=== PATIENT | female | born 1950 | race Caucasian/White ===

== ENCOUNTER → 2018-01-11 | Outpatient (CLI) | payer MEDICARE, OTHER ==
[~2018-01-11] MED LIST: LIPITOR10 MG PO; NORVASC2.5 MG PO
== END | disposition home or self-care (01) ==
LOC: CDC 12:58
DX: Z01.810 Encounter for preprocedural cardiovascular examination (principal); K80.20 Calculus of gallbladder without cholecystitis without obstruction; I45.10 Unspecified right bundle-branch block
CPT/HCPCS: 93000

== ENCOUNTER 2018-01-18 06:18 | Day surgery (SDC) | payer OTHER ==
[~2018-01-18] VITALS: Ht 158.8 cm; Wt 62.6 kg
[2018-01-18 06:51] VITALS: BP 140/76
[2018-01-18] MEDS ORDERED: COLACE100 MG PO (10:10)
[2018-01-18] MEDS ORDERED: PERCOCET 5/31 TABLET PO (10:10)
[2018-01-18 12:15] VITALS: BP 138/73
[2018-01-18 13:10] VITALS: BP 135/80
[2018-01-18 14:29] VITALS: BP 133/72
== END 2018-01-18 14:53 | disposition home or self-care (01) ==
LOC: SDC
PROC: 0FT44ZZ Resection of Gallbladder, Percutaneous Endoscopic Approach (ICD-10-PCS; principal; 2018-01-18)
DX: K80.10 Calculus of gallbladder with chronic cholecystitis without obstruction (principal); I10 Essential (primary) hypertension; E78.5 Hyperlipidemia, unspecified; K21.9 Gastro-esophageal reflux disease without esophagitis; K44.9 Diaphragmatic hernia without obstruction or gangrene; K29.50 Unspecified chronic gastritis without bleeding; Z85.828 Personal history of other malignant neoplasm of skin
CPT/HCPCS: 88304; J1100; J1170; J1885; J2001; J2250; J2405; J2710; J2765; J3010; J3475; J7120; S0074

== ENCOUNTER 2018-01-24 10:57 | Inpatient (IN) | payer OTHER ==
[~2018-01-24] VITALS: Ht 157.5 cm; Wt 62.3 kg
[~2018-01-24 10:57] MED LIST changes: +COLACE100 MG PO; +PERCOCET 5/31 TABLET PO
[2018-01-24 11:58] LABS: HEMATOCRIT 42.6 % (36.0-46.0); HEMOGLOBIN 14.7 G/DL (11.9-15.5); MCH 28.9 PG (29.0-34.0); MCHC 34.5 G/DL (30.0-36.0); MCV 83.7 FL (83-99); PLATELET COUNT 238 K/uL (156-360); RBC DIS.WIDTH-CV 12.6 % (11.8-14.6); RBC DIS.WIDTH-SD 38.5 % (39-53); RED BLOOD COUNT 5.09 M/uL (3.80-5.20); WHITE BLOOD COUNT 11.6 K/uL (4.1-10.2)
[2018-01-24 12:07] LABS: ALBUMIN 4.5 g/dL (3.2-4.8)
[2018-01-24 12:08] LABS: CHLORIDE 101 mEq/L (99-109); POTASSIUM 4.6 mEq/L (3.7-5.4); SODIUM 137 mEq/L (136-147)
[2018-01-24 12:10] LABS: GLUCOSE 150 mg/dL (70-99); TOTAL PROTEIN 8.1 g/dL (6.4-8.3)
[2018-01-24 12:12] LABS: TOTAL BILIRUBIN 6.3 mg/dL (0.0-1.0)
[2018-01-24 12:13] LABS: ALKALINE PHOSPHATASE 178 IU/L (3-129)
[2018-01-24 12:14] LABS: CREATININE 0.8 mg/dL (0.6-1.3); GFR ESTIMATE (CALCULATED) > 59 mL/min/
[2018-01-24 12:15] LABS: AST (GOT) 654 IU/L (2-34); UREA NITROGEN (BUN) 12 mg/dL (9-23)
[2018-01-24 12:16] LABS: ALT (GPT) 839 IU/L (3-49)
[2018-01-24 12:29] LABS: LIPASE 3751 U/L (1.0-51.0)
[2018-01-24 12:54] LABS: APPEARANCE CLEAR ((CLEAR)); BILIRUBIN NEGATIVE; BLOOD SMALL; COLOR YELLOW ((YELLOW)); GLUCOSE (STRIP) NEGATIVE; KETONES NEGATIVE; LEUKOCYTES TRACE; NITRITE NEGATIVE; PROTEIN (STRIP) NEGATIVE; SPECIFIC GRAVITY 1.006 (1.000-1.030)
[2018-01-24 13:01] LABS: BACTERIA RARE /HPF; CALCIUM OXALATE CRYSTALS 2+ /HPF; EPITHELIAL CELLS RARE /HPF; MUCUS TRACE /LPF; RED BLOOD CELLS 0-5 /HPF (0-5)
[2018-01-24] MEDS ORDERED: COLACE100 MG PO (13:42)
[2018-01-24] MEDS ORDERED: LIPITOR10 MG PO (13:42)
[2018-01-24] MEDS ORDERED: ONE DAILY TABL1 EAC1 PO (13:43)
[2018-01-24] MEDS ORDERED: LO-DOSE ASPIRIN81 M2 PO (13:43)
[2018-01-24] MEDS ORDERED: MILK THISTLE140 M1 PO (13:43)
[2018-01-24 15:15] VITALS: BP 184/94
[2018-01-24 19:58] VITALS: BP 174/84
[2018-01-24 22:53] VITALS: BP 150/72
[2018-01-25 03:46] VITALS: BP 144/70
[2018-01-25 07:02] LABS: BASOPHIL (%) 0.7 % (0-1); BASOPHIL COUNT 0.1 K/uL (0-0.1); EOSINOPHIL (%) 3.5 % (0-5); EOSINOPHIL COUNT 0.3 K/uL (0-0.3); HEMATOCRIT 38.9 % (36.0-46.0); IMMATURE GRANULOCYTE (%) 0.4 % (0.0-0.7); LYMPHOCYTE COUNT 1.6 K/uL (1.0-2.8); MCHC 32.6 G/DL (30.0-36.0); MCV 85.7 FL (83-99); MONOCYTE (%) 8.3 % (3-12); MONOCYTE COUNT 0.6 K/uL (0-0.8); NEUTROPHIL (%) 65.1 % (45-76); NEUTROPHIL COUNT 4.8 K/uL (1.8-6.4); PLATELET COUNT 205 K/uL (156-360); RBC DIS.WIDTH-CV 13.1 % (11.8-14.6); RBC DIS.WIDTH-SD 40.3 % (39-53); RED BLOOD COUNT 4.54 M/uL (3.80-5.20); WHITE BLOOD COUNT 7.4 K/uL (4.1-10.2)
[2018-01-25 07:04] VITALS: BP 145/82
[2018-01-25 07:09] LABS: HEMOGLOBIN 12.7 G/DL (11.9-15.5)
[2018-01-25 07:36] LABS: ALBUMIN 3.8 G/DL (3.2-4.8); ALKALINE PHOSPHATASE 141 IU/L (3-129); ALT (GPT) 410 IU/L (3-49); AST (GOT) 198 IU/L (2-34); CHLORIDE 107 MEQ/L (99-109); CREATININE 0.6 MG/DL (0.6-1.3); GFR ESTIMATE (CALCULATED) > 59 mL/min/; LIPASE 357 U/L (1.0-51.0); POTASSIUM 4.2 MEQ/L (3.7-5.4); SODIUM 141 MEQ/L (136-147); TOTAL BILIRUBIN 2.8 MG/DL (0.0-1.0); TOTAL PROTEIN 6.4 G/DL (6.4-8.3); UREA NITROGEN (BUN) 12 mg/dL (9-23)
[2018-01-25 07:38] LABS: GLUCOSE 77 mg/dL (70-99)
[2018-01-25 11:15] VITALS: BP 173/85
[2018-01-25 15:14] VITALS: BP 144/88
[2018-01-26 00:20] VITALS: BP 159/78
[2018-01-26 06:18] LABS: HEMATOCRIT 37.4 % (36.0-46.0); HEMOGLOBIN 12.3 G/DL (11.9-15.5); MCH 27.9 PG (29.0-34.0); MCHC 32.9 G/DL (30.0-36.0); MCV 84.8 FL (83-99); PLATELET COUNT 212 K/uL (156-360); RBC DIS.WIDTH-CV 13.2 % (11.8-14.6); RBC DIS.WIDTH-SD 40.5 % (39-53); RED BLOOD COUNT 4.41 M/uL (3.80-5.20); WHITE BLOOD COUNT 7.2 K/uL (4.1-10.2)
[2018-01-26 07:10] LABS: ALBUMIN 3.6 G/DL (3.2-4.8); ALKALINE PHOSPHATASE 118 IU/L (3-129); ALT (GPT) 288 IU/L (3-49); CHLORIDE 104 MEQ/L (99-109); CREATININE 0.7 MG/DL (0.6-1.3); GFR ESTIMATE (CALCULATED) > 59 mL/min/; GLUCOSE 87 mg/dL (70-99); LIPASE 60 U/L (1.0-51.0); POTASSIUM 3.8 MEQ/L (3.7-5.4); SODIUM 142 MEQ/L (136-147); TOTAL PROTEIN 6.2 G/DL (6.4-8.3); UREA NITROGEN (BUN) 7 mg/dL (9-23)
[2018-01-26 07:11] LABS: AST (GOT) 83 IU/L (2-34); TOTAL BILIRUBIN 1.4 MG/DL (0.0-1.0)
[2018-01-26 07:27] VITALS: BP 157/87
[2018-01-26 11:06] VITALS: BP 169/80
== END 2018-01-26 13:05 | disposition home or self-care (01) | DRG 439 ==
LOC: EME 10:57 → EDOF 13:13 → 2EAST 13:13 → ENRESERV 14:09 → 2EAST 15:11
PROVIDERS: Physician Assistant; Physician Assistant Surgical
DX: K85.90 Acute pancreatitis without necrosis or infection, unspecified (principal); R17 Unspecified jaundice; I10 Essential (primary) hypertension; E78.5 Hyperlipidemia, unspecified; K21.9 Gastro-esophageal reflux disease without esophagitis; Z79.82 Long term (current) use of aspirin; Z90.49 Acquired absence of other specified parts of digestive tract; Z79.899 Other long term (current) drug therapy
CPT/HCPCS: 74181; 80053; 81003; 83690; 85025; 85027; 99281; 99285; J7030; J7040; S0074